=== PATIENT | male | born 1945 | race Caucasian/White ===

== ENCOUNTER 2017-09-24 08:35 | Inpatient (IN) | payer OTHER ==
[~2017-09-24] VITALS: Ht 162.6 cm; Wt 95.3 kg
[2017-09-24] MEDS ORDERED: FLUOXETINE20 MG PO (09:49)
[2017-09-24] MEDS ORDERED: CETIRIZINE10 MG PO (09:50)
[2017-09-24] MEDS ORDERED: TRAZODONE50 MG PO (09:56)
[2017-09-30] VITALS (8 sets, daily range): BP systolic 108–133; BP diastolic 60–75
[2017-10-01] VITALS (7 sets, daily range): BP systolic 107–142; BP diastolic 54–69
[2017-10-01 05:21] LABS: MEAN CELL VOLUME 92.2 fL CALC (80.0-100.0); MEAN CORPUSCULAR HGB 29.9 pG CALC (26.0-32.0); MEAN CORPUSCULAR HGB CONC 32.4 g/L CALC (32.0-36.0); RED BLOOD COUNT 3.95 mill/uL (4.70-6.10); RED CELL DISTRI WIDTH 13.8 % (11.5-15.5)
[2017-10-01 05:32] LABS: HEMATOCRIT 36.4 % (39.0-50.0); HEMOGLOBIN 11.8 g/dl (14.0-18.0)
[2017-10-01 05:50] LABS: ANION GAP 15 (6-22 (CALC)); BUN 16 mg/dL (8-23); BUN/CREATININE RATIO 15 (12-20 (CALC)); CARBON DIOXIDE 26 mmol/l (22-30); CHLORIDE 103 mmol/l (95-108); CREATININE 1.1 mg/dL (0.7-1.3); GFR > 60 ML/MIN (>=60 (CALC)); GFR FOR AFR.AMER. > 60 ML/MIN (>=60 (CALC)); POTASSIUM 4.4 mmol/l (3.5-5.1); SODIUM 140 mmol/l (137-146)
[2017-10-02 04:30] VITALS: BP 128/58
[2017-10-02 07:05] LABS: HEMATOCRIT 31.2 % (39.0-50.0); HEMOGLOBIN 10.5 g/dl (14.0-18.0); MEAN CELL VOLUME 90.7 fL CALC (80.0-100.0); MEAN CORPUSCULAR HGB 30.5 pG CALC (26.0-32.0); MEAN CORPUSCULAR HGB CONC 33.7 g/L CALC (32.0-36.0); RED BLOOD COUNT 3.44 mill/uL (4.70-6.10); RED CELL DISTRI WIDTH 13.5 % (11.5-15.5)
[2017-10-02 09:00] VITALS: BP 135/92
[2017-10-02 19:30] VITALS: BP 142/65
[2017-10-02 23:00] VITALS: BP 140/72
[2017-10-03 07:35] LABS: HEMATOCRIT 32.3 % (39.0-50.0); HEMOGLOBIN 10.7 g/dl (14.0-18.0); MEAN CELL VOLUME 90.5 fL CALC (80.0-100.0); MEAN CORPUSCULAR HGB CONC 33.1 g/L CALC (32.0-36.0); RED BLOOD COUNT 3.57 mill/uL (4.70-6.10); RED CELL DISTRI WIDTH 13.7 % (11.5-15.5)
[2017-10-03 07:56] LABS: ANION GAP 13 (6-22 (CALC)); BUN 11 mg/dL (8-23); BUN/CREATININE RATIO 13 (12-20 (CALC)); CARBON DIOXIDE 28 mmol/l (22-30); CHLORIDE 103 mmol/l (95-108); CREATININE 0.9 mg/dL (0.7-1.3); GFR > 60 ML/MIN (>=60 (CALC)); GFR FOR AFR.AMER. > 60 ML/MIN (>=60 (CALC)); POTASSIUM 4.2 mmol/l (3.5-5.1); SODIUM 140 mmol/l (137-146)
[2017-10-03 08:00] VITALS: BP 145/80
[2017-10-03 11:00] VITALS: BP 143/82
[2017-10-03] MEDS ORDERED: ASPIRIN EC325 MG PO (11:45)
[2017-10-03] MEDS ORDERED: PERCOCET 10/31 COMBO PO (11:45)
[2017-10-03] MEDS ORDERED: PEPCID20 MG PO (11:47)
== END 2017-10-03 15:30 | disposition home health service (06) | DRG 470 ==
LOC: ICU 09-30 08:05 → MS2 09-30 08:05 → ICU 09-30 15:40
PROVIDERS: Internal Medicine; ADMIT Orthopaedic Surgery; ATTEND Orthopaedic Surgery
PROC: 0SRD0J9 Replacement of Left Knee Joint with Synthetic Substitute, Cemented, Open Approach (ICD-10-PCS; principal; 2017-09-30)
DX: M17.12 Unilateral primary osteoarthritis, left knee (principal); F43.10 Post-traumatic stress disorder, unspecified; Z85.46 Personal history of malignant neoplasm of prostate; Z87.442 Personal history of urinary calculi
CPT/HCPCS: J2710

== ENCOUNTER 2017-10-08 16:10 | Emergency (ER) | payer OTHER, MEDICARE ==
[~2017-10-08] VITALS: Ht 162.6 cm; Wt 102.0 kg
[~2017-10-08 16:10] MED LIST: ASPIRIN EC325 MG PO; CETIRIZINE10 MG PO; FLUOXETINE20 MG PO; PEPCID20 MG PO; PERCOCET 10/31 COMBO PO; TRAZODONE50 MG PO
[2017-10-08 18:18] VITALS: BP 130/65
== END 2017-10-08 18:28 | disposition home or self-care (01) | DRG 556 ==
LOC: ED 16:10
DX: M79.605 Pain in left leg (principal); R22.42 Localized swelling, mass and lump, left lower limb; Z98.890 Other specified postprocedural states; Z96.652 Presence of left artificial knee joint